=== PATIENT | male | born 1960 | race African-American/Black ===

== ENCOUNTER 2023-09-10 05:59 | Emergency (ER) | payer OTHER ==
[~2023-09-10] VITALS: Ht 185.4 cm; Wt 90.0 kg
[~2023-09-10 05:59] MED LIST: ASPI-1497 PO; ATOR-2 PO; CLOP75TA33 PO; KEPP500 MT; MIDO10TA PO; TAMS-11 PO; VIT500LI PO
[2023-09-10 06:00] VITALS: O2SAT 99
[2023-09-10] MEDS: LEVETIRACETAM 1000MG PREMIX 100 ML IV ONE (06:30)
[2023-09-10 06:42] LABS: BASOPHILS % 0.5 % (0.0-2.0); EOSINOPHILS % 1.5 % (0.0-5.0); HEMOGLOBIN. 11.9 g/dL (14.0-18.0); LYMPHOCYTES % 21.1 % (20.0-50.0); MEAN CORPUSCULAR VOLUME 84.9 fL (80.0-94.0); MEAN PLATELET VOLUME 8.3 fl (7.4-10.4); MONOCYTES % 7.3 % (2.0-8.0); NEUTROPHILS % 69.6 % (40.0-76.0); PLATELET 181 x1000/uL (130-400); RED BLOOD CELL COUNT 4.24 mill/uL (4.7-6.1); RED CELL DISTRIBUTION WIDTH 14.6 % (11.6-14.6); WHITE BLOOD COUNT 7.1 x1000/uL (4.5-11.0)
[2023-09-10 06:47] LABS: CHLORIDE 107 mEq/L (98-107); POTASSIUM 3.5 mEq/L (3.5-5.1); SODIUM 139 mEq/L (136-145)
[2023-09-10 06:48] LABS: CALCIUM 8.9 mg/dL (8.7-10.4); CARBON DIOXIDE 25 mEq/L (21-32)
[2023-09-10 06:53] LABS: CREATININE 0.9 mg/dL (0.6-1.3); GLUCOSE 112 mg/dL (70-105); UREA NITROGEN BLOOD 10 mg/dL (9-23)
[2023-09-10 06:55] LABS: ALANINE AMINOTRANSFERASE < 7 IU/L (10-49); ALBUMIN 4.3 g/dL (3.2-4.8); ASPARTATE AMINOTRANSFERASE 15 IU/L (<34); BILIRUBIN TOTAL 0.5 mg/dL (0.1-1.0); PROTEIN TOTAL 6.7 g/dL (6.0-8.3)
[2023-09-10 06:56] LABS: ETHANOL BLOOD < 10 mg/dL (<10)
[2023-09-10 11:02] VITALS: BP 117/72; PULSE 68; RESP 15; TEMP 98.6
== END 2023-09-10 11:30 | disposition short-term general hospital (02) ==
LOC: ER 05:59 → EDBEDREQ 08:59 → EDBEDREQTM 08:59 → ER 11:30
DX: R56.9 Unspecified convulsions (principal); Z79.899 Other long term (current) drug therapy
CPT/HCPCS: 80053; 80320; 85025; 36415; 99285; J1953; G0480